=== PATIENT | female | born 1950 | race African-American/Black ===

== ENCOUNTER 2018-02-06 10:18 | Day surgery (SDC) | payer OTHER, BC ==
[2018-02-06] MEDS ORDERED: EPINEPHRINE/PF 1 MG/ML AMP ONE (11:01)
[2018-02-06] MEDS ORDERED: NS 0.9% VIAL 10 ML ONE (11:01)
[2018-02-06] MEDS ORDERED: DUOVISC 1 KIT OPTH ONE (11:02)
[2018-02-06] MEDS ORDERED: MOXIFLOXACIN HCL 10 DROPS/ML **OR USE OPTH ONE (11:02)
[2018-02-06] MEDS ORDERED: BALANCED SALT IRRIG PLAIN 500 ML BTL IRR ONE (11:02)
[2018-02-06] MEDS ORDERED: TRYPAN BLUE 0.5 ML SYR OPTH ONE (11:02)
[2018-02-06] MEDS ORDERED: NA CHLORIDE 0.9% 500 ML ONE (11:10)
[2018-02-06] MEDS ORDERED: CYCLOPENTOLATE 1% OPTH 2 ML ONE (11:10)
[2018-02-06] MEDS ORDERED: PHENYLEPHRINE 10% OPTH 5ML ONE (11:11)
[2018-02-06] MEDS ORDERED: CYCLOPENTOLATE 1% OPTH 2 ML OPTH ONE ×2 (11:15→11:20)
[2018-02-06] MEDS ORDERED: PHENYLEPHRINE 10% OPTH 5ML OPTH ONE ×2 (11:15→11:20)
[2018-02-06] MEDS: LIDOCAINE 2% MPF 5 ML VIAL ONE ×2 (12:17→12:40)
[2018-02-06] MEDS: TETRACAINE HCL 0.5% 2ML OPTH ONE ×2 (12:17→12:39)
[2018-02-06] MEDS: BUPIVACAINE 0.25% PF 10 ML VIAL ONE ×2 (12:18→12:40)
[2018-02-06] MEDS ORDERED: LIDOCAINE 2% MPF 5 ML VIAL ONE (12:29)
[2018-02-06] MEDS ORDERED: PROPOFOL 200 MG/20 ML VIAL IV ONE (12:29)
[2018-02-06] MEDS: NA CHLORIDE 0.9% 500 ML ONE ×2 (12:30→12:45)
--- NOTE | 2018-02-06 13:38 | P.BOP ---
Preoperative diagnosis: Nuclear sclerotic and cortical cataract OS Postoperative diagnosis: Same Primary procedure: Phacoemulsification with IOL OS Estimated blood loss: None Anesthesia: Local (Subtenon's infusion with anesthesia for cataract surgery) Complications: None Implants: ZCB00 +18.0 Transferred to: Other (Day surgery) Condition: Good
--- NOTE | 2018-02-06 23:48 | OP ---
Date of Procedure: 02/06/2018 Surgeon: Grisel Arnold MD Anesthesiologist: 1. Demond Esquivel CRNA. 2. Kevin Rock M.D. Preoperative Diagnoses: Nuclear sclerotic cataract and cortical cataract, OS (left eye). Operation Performed: Phacoemulsification with intraocular lens implant, OS (left eye). Anesthesia: Per cataract surgery. Complications: None. Description Of Procedure: In day surgery, the patient was prepped with Betadine and draped. A conju nctival incision was made in the inferior nasal quadrant with Gaurav scissors. A sub-Tenon block c onsisting of a 1:1 mixture of 2% Xylocaine and 0.25% bupivacaine was placed through the conjunctival incision with a blunt cannula. A Honan balloon was placed over the eye and the patient was transferr ed to the operating room. In the operating room the patient was prepped and draped in the usual sterile fashion for ophthalmic surgery. A lid speculum was placed in the OS. Two paracentesis sites were made superiorly and infer iorly in the limbal cornea. Viscoat was placed in the anterior chamber and a crescent blade was used to make a corneal groove and tunnel, and a keratome was used to enter the anterior chamber. Provisc was placed in the anterior chamber and a 360 degree capsulotomy was performed with a cystitome. The lens was hydrodissected with BSS and rotated freely. The lens was removed with a stop and chop tech nique. A 4.22 phaco CDE was used to remove the lens. Residual cortex was removed with the irrigatio n and aspiration. Provisc was placed in the capsular bag. A ZCB00 +18.0 diopter lens was placed in the capsular bag without complications. Irrigation and aspiration was used to remove residual viscoe lastic. The paracentesis sites were hydrated with BSS. The wound and paracentesis sites were inspec bibi and found to be watertight. Vigamox 0.07 cc was placed intracamerally at the end of the procedur e. The eye was irrigated with balanced salt solution. The eye was patched with a soft cotton patch and Cárdenas metal shield. The patient was returned to day surgery in good condition. Comments: One 10-0 nylon suture was placed in the inferior paracentesis at the end of the procedure. Discharge Instructions: Ms. Connolly is discharged to home in good condition and is to follow up with Dr. Arnold in the morning. ULICES/KYRIE Voice ID: [id number] Report ID: [id number]
== END 2018-02-06 14:18 | disposition home or self-care (01) ==
LOC: OR 10:18
PROVIDERS: ATTEND Ophthalmology Retina Specialist
PROC: 08RK3JZ Replacement of Left Lens with Synthetic Substitute, Percutaneous Approach (ICD-10-PCS; principal; 2018-02-06 10:45)
DX: H25.12 Age-related nuclear cataract, left eye (principal); H25.012 Cortical age-related cataract, left eye; I10 Essential (primary) hypertension; E78.00 Pure hypercholesterolemia, unspecified; M81.0 Age-related osteoporosis without current pathological fracture; E07.9 Disorder of thyroid, unspecified; M19.90 Unspecified osteoarthritis, unspecified site; Z88.6 Allergy status to analgesic agent; Z79.82 Long term (current) use of aspirin; Z83.511 Family history of glaucoma; Z83.518 Family history of other specified eye disorder; Z80.9 Family history of malignant neoplasm, unspecified; Z82.49 Family history of ischemic heart disease and other diseases of the circulatory system
CPT/HCPCS: 66984; J0171

== ENCOUNTER 2018-11-03 12:11 | Emergency (ER) | payer OTHER, BC ==
--- NOTE | 2018-11-03 13:56 | RAD REPORT ---
EXAM DESCRIPTION: RAD - Foot Left 3 View - 11/03/2018 1:50 pm CLINICAL HISTORY: PAIN Swelling COMPARISON: No comparisons FINDINGS: Moderate soft tissue swelling affects the left great toe. Subtle calcification is seen adj acent to the first metatarsal head medially within the soft tissues. No acute fracture, dislocation o r radiographic evidence of osteomyelitis.
--- NOTE | 2018-11-03 15:13 | ER ---
Nurse's Notes [facility] Name: Didi Connolly Age: 68 yrs Sex: Female : 1950 Arrival Date: 11/03/2018 Time: 12:14 Bed 14 Private MD: Negrito Luis V Diagnosis: Pain in left foot Presentation: 11/03 12:41 Presenting complaint: Patient states: Left great toe pain with redness and inflammation aj for 3 days. Transition of care: patient was not received from another setting of care. Onset of symptoms was November 01, 2018. Risk Assessment: Do you want to hurt yourself or someone else? Patient reports no desire to harm self or others. Initial Sepsis Screen: Does the patient meet any 2 criteria? No. Patient's initial sepsis screen is negative. Does the patient have a suspected source of infection? No. Patient's initial sepsis screen is negative. Care prior to arrival: None. 12:41 Method Of Arrival: Ambulatory aj 12:41 Acuity: PRIMO 3 aj Triage Assessment: 12:44 General: Appears in no apparent distress. comfortable, Behavior is calm, cooperative, aj appropriate for age. Pain: Complains of pain in left first toe. Neuro: Level of Consciousness is awake, alert, obeys commands, Oriented to person, place, time, situation, Appropriate for age. Respiratory: Airway is patent Respiratory effort is even, unlabored, Respiratory pattern is regular, symmetrical. Derm: Skin is intact, is healthy with good turgor, Skin is pink, warm \T\ dry. normal. Musculoskeletal: Reports pain in left first toe. Historical: - Allergies: 12:44 Codeine; aj - Home Meds: 12:44 levothyroxine oral [Active]; pravastatin oral oral [Active]; losartan oral oral aj [Active]; - PMHx: 12:44 Hypothyroidism; Hyperlipidemia; Hypertension; aj - PSHx: 12:44 cataract; aj - Immunization history:: Adult Immunizations up to date. - Social history:: Smoking status: Patient/guardian denies using tobacco, Patient uses alcohol, only on a social basis. - Ebola Screening: : Patient negative for fever greater than or equal to 101.5 degrees Fahrenheit, and additional compatible Ebola Virus Disease symptoms Patient denies exposure to infectious person Patient denies travel to an Ebola-affected area in the 21 days before illness onset No symptoms or risks identified at this time. Screenin:49 Abuse screen: Denies threats or abuse. Denies injuries from another. Nutritional ss screening: No deficits noted. Tuberculosis screening: No symptoms or risk factors identified. Fall Risk None identified. Assessment: 14:47 General: Appears in no apparent distress. comfortable, Behavior is calm, cooperative, ss Denies fever, feeling ill, fatigue, chills. Pain: Complains of pain in dorsum of left foot and left first toe Pain currently is 4 out of 10 on a pain scale. at worst was 8 out of 10 on a pain scale. Quality of pain is described as tender, Pain began 2-3 days ago. Is continuous, Aggravated by weight bearing. Neuro: Level of Consciousness is awake, alert, obeys commands, Oriented to person, place, time, situation. Cardiovascular: Capillary refill < 3 seconds is brisk in bilateral fingers. Respiratory: Airway is patent Respiratory effort is even, unlabored, Respiratory pattern is regular, symmetrical. EENT: Oral mucosa is moist. Derm: Skin is intact, is healthy with good turgor, Skin is dry, Skin is pink, warm \T\ dry. normal. 15:44 Reassessment: Patient appears in no apparent distress at this time. Patient and/or ph family updated on plan of care and expected duration. Pain level reassessed. Patient is alert, oriented x 3, equal unlabored respirations, skin warm/dry/pink. Pt d/c home w/ SO. Vital Signs: 12:44 BP 155 / 73; Pulse 85; Resp 20; Temp 97.4; Pulse Ox 100% on R/A; Weight 66.68 kg; aj Height 5 ft. 2 in. (157.48 cm); 15:45 BP 142 / 86; Pulse 78; Resp 18; Temp 97.6; Pulse Ox 99% on R/A; ph 12:44 Body Mass Index 26.89 (66.68 kg, 157.48 cm) aj ED Course: 12:14 Patient arrived in ED. sb2 12:14 Negrito Luis MD is Private Physician. sb2 12:43 Triage completed. aj 12:44 Arm band placed on left wrist. Patient placed in waiting room, Patient notified of wait aj time. X-ray ordered. 13:45 X-ray completed. Patient tolerated procedure well. Patient moved back from radiology. 1 13:46 XRAY Foot LEFT 3 View In Process Unspecified. EDMS 14:26 Chloe Guy, RN is Primary Nurse. ph 14:32 Jani Pollard PA is PHCP. m 14:32 Pablito Garcia MD is Attending Physician. [facility] 14:49 Patient has correct armband on for positive identification. Bed in low position. Call ss light in reach. 14:49 Patient maintains SpO2 saturation greater than 95% on room air. ss 15:11 Priyank Anderson MD is Referral Physician. [facility] 15:44 No provider procedures requiring assistance completed. Patient did not have IV access ph during this emergency room visit. Administered Medications: No medications were administered Outcome: 15:12 Discharge ordered by . [facility] 15:45 Discharged to home ambulatory, with significant other. ph 15:45 Condition: good 15:45 Discharge instructions given to patient, Instructed on discharge instructions, follow up and referral plans. medication usage, Demonstrated understanding of instructions, follow-up care, medications, Prescriptions given X 1. 15:50 Patient left the ED. ph Signatures: Dispatcher [employer] EDMS Melani Garcia, RN Jani Wei PA PA [facility] Sona Castillo 1 Janice Campbell, Chloe Burt RN, RN RN Mayuri Quintero 2
--- NOTE | 2018-11-03 15:13 | EDPHYS ---
Physician Documentation [facility] Name: Didi Connolly Age: 68 yrs Sex: Female : 1950 Arrival Date: 11/03/2018 Time: 12:14 Bed 14 Private MD: Negrito Luis V ED Physician Pablito Garcia HPI: 11/03 14:20 This 68 yrs old Black Female presents to ER via Ambulatory with complaints of Toe jmm Injury. 14:20 The patient presents with pain. Onset: The symptoms/episode began/occurred gradually, 2 jmm day(s) ago. Modifying factors: The symptoms are alleviated by OTC meds, the symptoms are aggravated by weight bearing. Associated signs and symptoms: Pertinent negatives: fever. This is a 68 year old female with a history of htn, hlp, htn that presents to the ED with left foot pain beginning this past Tuesday. Patient denies history of gout but states she has had ongoing pain to her knees which has yet to be evaluated. Patient states drinking alcohol the night before the pain developed. Denies fever or body aches. . Historical: - Allergies: 12:44 Codeine; aj - Home Meds: 12:44 levothyroxine oral [Active]; pravastatin oral oral [Active]; losartan oral oral aj [Active]; - PMHx: 12:44 Hypothyroidism; Hyperlipidemia; Hypertension; aj - PSHx: 12:44 cataract; aj - Immunization history:: Adult Immunizations up to date. - Social history:: Smoking status: Patient/guardian denies using tobacco, Patient uses alcohol, only on a social basis. - Ebola Screening: : Patient negative for fever greater than or equal to 101.5 degrees Fahrenheit, and additional compatible Ebola Virus Disease symptoms Patient denies exposure to infectious person Patient denies travel to an Ebola-affected area in the 21 days before illness onset No symptoms or risks identified at this time. ROS: 14:20 Constitutional: Negative for fever, chills, and weight loss, Cardiovascular: Negative jmm for chest pain, palpitations, and edema, Respiratory: Negative for shortness of breath, cough, wheezing, and pleuritic chest pain. 14:20 MS/extremity: Positive for pain, swelling, tenderness. 14:20 All other systems are negative. Exam: 14:20 Constitutional: This is a well developed, well nourished patient who is awake, alert, jmm and in no acute distress. Head/Face: atraumatic. Eyes: EOMI, no conjunctival erythema appreciated ENT: Moist Mucus Membranes Neck: Trachea midline, Supple Chest/axilla: Normal chest wall appearance and motion. Cardiovascular: Regular rate and rhythm. No edema appreciated Respiratory: Normal respirations, no respiratory distress appreciated Back: Normal ROM 14:20 Musculoskeletal/extremity: pain is noted on palpation of the left 1st mtp, full dorsalis pedis pulse noted, compartments are soft, NVI. 14:20 Skin: erythema without induration noted to the left 1st mtp. 14:20 Neuro: Motor: is normal. 14:20 Psych: Behavior/mood is pleasant, cooperative. Vital Signs: 12:44 BP 155 / 73; Pulse 85; Resp 20; Temp 97.4; Pulse Ox 100% on R/A; Weight 66.68 kg; aj Height 5 ft. 2 in. (157.48 cm); 15:45 BP 142 / 86; Pulse 78; Resp 18; Temp 97.6; Pulse Ox 99% on R/A; ph 12:44 Body Mass Index 26.89 (66.68 kg, 157.48 cm) aj MDM: 14:33 Patient medically screened. jason 15:10 Data reviewed: vital signs, nurses notes. Counseling: I had a detailed discussion with roger the patient and/or guardian regarding: the historical points, exam findings, and any diagnostic results supporting the discharge/admit diagnosis, lab results, radiology results, the need for outpatient follow up, to return to the emergency department if symptoms worsen or persist or if there are any questions or concerns that arise at home. 15:10 ED course: Patient's symptoms appear most likely related to an arthritic process. i do m not suspect septics joint, patient is alert, afebrile, and non toxic in appearance. Patient is advised to follow up with orthopedics and otherwise given return precautions. patient understood and agrees with the plan of care. . 11/03 12:45 Order name: XRAY Foot LEFT 3 View; Complete Time: 14:23 aj Administered Medications: No medications were administered Disposition: 11/03/18 15:12 Discharged to Home. Impression: Pain in left foot. - Condition is Stable. - Discharge Instructions: Gout. - Prescriptions for Ibuprofen 800 mg Oral Tablet - take 1 tablet by ORAL route every 8 hours As needed take with food; 30 tablet. - Medication Reconciliation Form, Thank You Letter, Antibiotic Education, Prescription Opioid Use form. - Follow up: Priyank Anderson MD; When: 2 - 3 days; Reason: Recheck today's complaints, Continuance of care, Re-evaluation by your physician. Addendum: 11/07/2018 11:00 Co-signature as Attending Physician, Pablito Garcia MD I agree with the assessment and c childers plan of care. Signatures: Dispatcher [employer] EDMelani Martin, RN RN Pablito Telles MD MD cha Mickail, Joel, PA PA Chloe Hardy, RN RN ph Corrections: (The following items were deleted from the chart) 11/03 15:50 15:12 11/03/2018 15:12 Discharged to Home. Impression: Pain in left foot. Condition is ph Stable. Forms are Medication Reconciliation Form, Thank You Letter, Antibiotic Education, Prescription Opioid Use. Follow up: Priyank Anderson; When: 2 - 3 days; Reason: Recheck today's complaints, Continuance of care, Re-evaluation by your physician. veronica
== END 2018-11-03 15:50 | disposition home or self-care (01) ==
LOC: ER 12:11
DX: M79.672 Pain in left foot (principal); E03.9 Hypothyroidism, unspecified; E78.5 Hyperlipidemia, unspecified; I10 Essential (primary) hypertension; Z79.899 Other long term (current) drug therapy
CPT/HCPCS: 99284

== ENCOUNTER 2019-10-19 08:51 | Day surgery (SDC) | payer OTHER, BC ==
[2019-10-19 09:41] VITALS: BP 129/69; TEMP 97.2; O2SAT 100
[2019-10-19 09:42] VITALS: BMI 26.9
[2019-10-19] MEDS ORDERED: Zoledronic Acid/Mannitol/Water 5 MG/100 ML INFUS.BOT IV NR (10:00)
== END 2019-10-19 09:55 | disposition home or self-care (01) ==
LOC: DS 08:51
PROVIDERS: ATTEND Internal Medicine
DX: M81.0 Age-related osteoporosis without current pathological fracture (principal); R13.10 Dysphagia, unspecified
CPT/HCPCS: 96365; J3489

== ENCOUNTER 2020-11-20 10:04 | Day surgery (SDC) | payer OTHER, BC ==
[2020-11-20] MEDS ORDERED: Zoledronic Acid/Mannitol/Water 5 MG/100 ML INFUS.BOT IV ONE (10:15)
[2020-11-20 11:20] VITALS: BP 139/73; TEMP 97.3; O2SAT 100; BMI 27.1
== END 2020-11-20 11:12 | disposition home health service (06) ==
LOC: DS 10:04
PROVIDERS: ATTEND Internal Medicine
DX: M81.0 Age-related osteoporosis without current pathological fracture (principal); R13.10 Dysphagia, unspecified
CPT/HCPCS: 96365; J3489

== ENCOUNTER 2021-12-01 08:03 | Day surgery (SDC) | payer OTHER, BC ==
[2021-12-01] MEDS ORDERED: Zoledronic Acid/Mannitol/Water 5 MG/100 ML INFUS.BOT IV ONE (09:00)
[2021-12-01 09:27] VITALS: TEMP 97.3; O2SAT 98; BMI 27.2
[2021-12-01 09:29] VITALS: BP 144/80
== END 2021-12-01 09:20 | disposition home or self-care (01) ==
LOC: DS 08:03
PROVIDERS: ATTEND Internal Medicine
DX: M81.0 Age-related osteoporosis without current pathological fracture (principal); R13.10 Dysphagia, unspecified
CPT/HCPCS: 96365; J3489